=== PATIENT | male | born 2000 | race Caucasian/White ===

== ENCOUNTER → 2018-02-16 | Outpatient (CLI) | payer OTHER ==
--- NOTE | 2018-02-19 12:50 | CPEEG ---
DATE OF STUDY: 02/16/2018 INTERPRETATION: Normal EEG during wakefulness and drowsiness. There were no potentially epileptogen ic abnormalities present during the recording. REPORT: This EEG contains 10 Hz alpha activity to the posterior head regions. There was no abnormal activation at rest, during photic stimulation or hyperventilation. The patient briefly became drows y toward the end of the study. There was no abnormal activation during drowsiness or during the time s of arousal. /[id number]/MODL
== END ==
LOC: FCPNEURO 12:49
PROVIDERS: ATTEND Physician Assistant Medical
DX: R51 Headache (principal); H53.9 Unspecified visual disturbance